=== PATIENT | female | born 1935 | race Two or more races ===

== ENCOUNTER → 2016-08-03 | Outpatient (CLI) | payer MEDICARE, MEDICAID | END | disposition home or self-care (01) | LOC: Rad HDHVI 08:28 | PROVIDERS: ATTEND Internal Medicine Cardiovascular Disease | DX: Z01.810 Encounter for preprocedural cardiovascular examination (principal) | CPT/HCPCS: 93306 ==

== ENCOUNTER → 2016-08-07 | Outpatient (CLI) | payer MEDICARE, MEDICAID ==
[~2016-08-07] VITALS: Ht 149.9 cm; Wt 82.6 kg
[~2016-08-07] MED LIST: D5W 5% IV SCH; DIPYRIDAMOLE (5MG/ML) 10 ML VIAL IV ONE; DIPYRIDAMOLE IV SCH
== END | disposition home or self-care (01) ==
LOC: Rad HDHVI 08:19
PROVIDERS: ATTEND Internal Medicine Cardiovascular Disease
DX: Z01.810 Encounter for preprocedural cardiovascular examination (principal); I10 Essential (primary) hypertension; E11.9 Type 2 diabetes mellitus without complications; E78.00 Pure hypercholesterolemia, unspecified
CPT/HCPCS: 78452; 93005; 96374; 96375; A9500; J1245

== ENCOUNTER → 2016-09-20 | Outpatient (CLI) | payer MEDICARE, MEDICAID ==
[~2016-09-20] VITALS: Ht 149.9 cm; Wt 82.6 kg
[~2016-09-20] MED LIST changes: +ALP15OS OP; +AMLO10TA2 PO; +ASPI-492 PO; +CARB25TA22 PO; +CARV12.544 PO; +CILO100T PO; -D5W 5% IV SCH; -DIPYRIDAMOLE (5MG/ML) 10 ML VIAL IV ONE; -DIPYRIDAMOLE IV SCH; +DORZ2SOL15 EACHEYE; +DORZ2SOL15 OP; +FURO40TA4 PO; +INSU1.2I SC; +INSUINJ18 SC; +LATA0.00 OP; +LORA-653 PO; +NOR5T PO; +PANT40T PO; +PAR20T PO; +POTA10TA34 PO; +SIMV-8 PO; +[UNRECOGNIZED DRUG - CODE] PO
[2016-09-20 11:20] VITALS: BP 137/69
[2016-09-20 11:50] VITALS: BP 123/65
[2016-09-20 17:01] LABS: Basophils # (auto) 0 uL; Basophils % (auto) 0.1 % (0.0-2.0); Eosinophils # (auto) 0.2 uL; Eosinophils % (auto) 2.8 % (0.0-7.0); Hematocrit 41.3 % (36.0-46.0); Hemoglobin 13.5 g/dL (12.2-16.2); Lymphocytes # (auto) 1.6 uL; Lymphocytes % (auto) 21.4 % (10.0-50.0); Mean Corpuscular Hemoglobin 30.5 pg (28.0-32.0); Mean Corpuscular Hgb Conc. 32.7 g/dL (32.0-36.0); Mean Platelet Volume 9.5 fL (7.4-10.4); Monocytes # (auto) 0.4 uL; Monocytes % (auto) 5.2 % (0.0-12.0); Neutrophils # (auto) 5.3 uL; Neutrophils % (auto) 70.5 % (37.0-80.0); Platelet Count (auto) 248 10^3/uL (140-450); Potassium 3.8 mmol/L (3.5-5.1); Red Cell Distribution Width 15.4 % (11.6-16.0); White Blood Cell 7.5 10^3/uL (4.4-10.8)
[2016-09-20 17:02] LABS: BUN/Creatinine Ratio 11.1; Calcium 9.2 mg/dL (8.5-10.1)
[2016-09-20 17:44] LABS: INR 1.06 (0.9-1.15); Partial Thromboplastin Time 29.1 sec (22.64-33.71); Prothrombin Time 11.4 sec (9.37-12.3)
== END | disposition home or self-care (01) ==
LOC: Rad HDHVI 10:53
PROVIDERS: ATTEND Internal Medicine Cardiovascular Disease
DX: I10 Essential (primary) hypertension (principal); D64.9 Anemia, unspecified; R79.1 Abnormal coagulation profile; Z01.812 Encounter for preprocedural laboratory examination
CPT/HCPCS: 36415; 71020; 80048; 85025; 85610; 85730; 93005; G0463

== ENCOUNTER 2016-09-21 12:11 | Inpatient (IN) | payer MEDICARE, MEDICAID ==
[~2016-09-21] VITALS: Ht 149.9 cm; Wt 82.6 kg
[2016-09-21] MEDS ORDERED: LIDOCAINE 2%HCL (LOCAL ANESTH.) INJ 20ML MDV ONE (15:15)
[2016-09-21] MEDS ORDERED: IOHEXOL 350 MG/ML 100ML IJ ONE (15:17)
[2016-09-21] MEDS ORDERED: SODIUM CHL 0.9% 50 ML ONE (15:23)
[2016-09-21] MEDS ORDERED: methylPREDNISolone SOD SUCC 125 MG/2 ML VL ONE (15:23)
[2016-09-21] MEDS ORDERED: ANGIOMAX 250 MG VIAL IV ONE (15:23)
[2016-09-21] MEDS ORDERED: MIDAZOLAM HCL 1MG/1ML-2 ML VIAL ONE (15:23)
[2016-09-21] MEDS ORDERED: diphenhdrAMINE HCL 50 MG/1 ML VL ONE (15:24)
[2016-09-21] MEDS ORDERED: SODIUM CHLORIDE 0.9% 1,000 ML IV SCH (17:21)
[2016-09-21] MEDS ORDERED: FUROSEMIDE 40 MG TAB PO PRN (17:30)
[2016-09-21] MEDS ORDERED: MORPHINE SULF INJ 2 MG/ML SYRINGE 1ML IV PRN (17:30)
[2016-09-21] MEDS ORDERED: NITROGLYCERIN 0.4 MG SL TAB SL PRN (17:30)
[2016-09-21] MEDS: HYDROcodone-ACET 5/325MG TAB PO SCH ×2 (18:00→21:53)
[2016-09-21] MEDS ORDERED: DEXTROSE (50%) 50ML SYRG IV PRN (18:00)
[2016-09-21 18:53] VITALS: BP 144/66
[2016-09-21] MEDS: SODIUM CHLOR 0.9% PF (SALINE LOCK) 10ML VIAL IV SCH (21:52)
[2016-09-21] MEDS: LORazepam 0.5 MG TAB PO SCH (21:52)
[2016-09-21] MEDS: DORZOLAM-TIMOLOL(2/0.5%) OPTH(EYE) SOLN 10ML EACHEYE SCH (21:52)
[2016-09-21] MEDS: CILOSTAZOL 100 MG TAB PO SCH (21:53)
[2016-09-21] MEDS: CARVEDILOL 12.5 MG TAB PO SCH (21:55)
[2016-09-21 22:00] VITALS: BP 135/63
[2016-09-21] MEDS: TICAGRELOR 90 MG TAB PO SCH (22:00)
[2016-09-21] MEDS: INSULIN ASPART SC SCH (22:00)
[2016-09-21] MEDS ORDERED: LATANOPROST 0.005 % OPTH(EYE) SOL 2.5ML OP SCH (22:00)
[2016-09-21] MEDS ORDERED: DORZOLAM-TIMOLOL(2/0.5%) OPTH(EYE) SOLN 10ML OP SCH (22:00)
[2016-09-21] MEDS: INSULIN ASPART PROTAMINE SC SCH (22:00)
[2016-09-21] MEDS ORDERED: InsuLIN REG 1unit/0.01ml Soln (100units/ml) SC SCH (22:00)
[2016-09-21] MEDS ORDERED: ATORVASTATIN 20 MG TAB PO SCH (22:00)
[2016-09-21] MEDS: ACCU-CHEK COMFORT CURVE STRIP VI SCH (22:04)
[2016-09-21] MEDS: CARBIDOPA W LEVODOPA 25/100mg TABLET PO SCH (22:23)
[2016-09-22] MEDS: HYDROcodone-ACET 5/325MG TAB PO SCH ×4 (02:00→14:22)
[2016-09-22 05:30] VITALS: BP 143/71
[2016-09-22] MEDS: CARBIDOPA W LEVODOPA 25/100mg TABLET PO SCH ×2 (06:00→14:23)
[2016-09-22] MEDS: SODIUM CHLOR 0.9% PF (SALINE LOCK) 10ML VIAL IV SCH ×2 (06:21→13:47)
[2016-09-22] MEDS: InsuLIN REG 1unit/0.01ml Soln (100units/ml) SC SCH ×2 (06:21→11:30)
[2016-09-22] MEDS: ACCU-CHEK COMFORT CURVE STRIP VI SCH ×3 (06:21→17:09)
[2016-09-22] MEDS: INSULIN ASPART SC SCH ×2 (08:44→12:00)
[2016-09-22] MEDS: INSULIN ASPART PROTAMINE SC SCH ×2 (08:44→12:00)
[2016-09-22 09:00] VITALS: BP 142/71
[2016-09-22] MEDS ORDERED: POTASSIUM CHL 10 Meq TABLET PO SCH (10:00)
[2016-09-22] MEDS: TICAGRELOR 90 MG TAB PO SCH ×2 (10:00→11:08)
[2016-09-22] MEDS ORDERED: amLODIPine BESYLATE 5 MG TAB PO SCH (10:00)
[2016-09-22] MEDS ORDERED: INSULIN GLARGINE 300 UNIT/ML SC SCH (10:00)
[2016-09-22] MEDS ORDERED: PANTOPRAZOLE 40 MG TAB PO SCH (10:00)
[2016-09-22] MEDS ORDERED: ASPirin-EC 81 mg tab PO SCH (10:00)
[2016-09-22] MEDS ORDERED: PARoxetine 20 MG TAB PO SCH (10:00)
[2016-09-22] MEDS ORDERED: OLANZapine 5 MG TAB PO SCH (10:00)
[2016-09-22] MEDS: CILOSTAZOL 100 MG TAB PO SCH (10:46)
[2016-09-22] MEDS: LORazepam 0.5 MG TAB PO SCH (10:59)
[2016-09-22] MEDS: CARVEDILOL 12.5 MG TAB PO SCH (11:03)
[2016-09-22] MEDS: DORZOLAM-TIMOLOL(2/0.5%) OPTH(EYE) SOLN 10ML EACHEYE SCH (11:39)
[2016-09-22 13:26] VITALS: BP 143/71
== END 2016-09-22 17:15 | disposition home or self-care (01) | DRG 247 ==
LOC: CATH 12:11 → TELE-CENTR 12:12
PROVIDERS: ADMIT Internal Medicine Cardiovascular Disease; ATTEND Internal Medicine Cardiovascular Disease
PROC: 027034Z Dilation of Coronary Artery, One Artery with Drug-eluting Intraluminal Device, Percutaneous Approach (ICD-10-PCS; principal; 2016-09-21)
PROC: 4A023N7 Measurement of Cardiac Sampling and Pressure, Left Heart, Percutaneous Approach (ICD-10-PCS; 2016-09-21)
PROC: B3121ZZ Fluoroscopy of Left Subclavian Artery using Low Osmolar Contrast (ICD-10-PCS; 2016-09-21)
PROC: B2131ZZ Fluoroscopy of Multiple Coronary Artery Bypass Grafts using Low Osmolar Contrast (ICD-10-PCS; 2016-09-21)
PROC: B41J1ZZ Fluoroscopy of Other Lower Arteries using Low Osmolar Contrast (ICD-10-PCS; 2016-09-21)
PROC: B2111ZZ Fluoroscopy of Multiple Coronary Arteries using Low Osmolar Contrast (ICD-10-PCS; 2016-09-21)
PROC: B2181ZZ Fluoroscopy of Left Internal Mammary Bypass Graft using Low Osmolar Contrast (ICD-10-PCS; 2016-09-21)
DX: I25.810 Atherosclerosis of coronary artery bypass graft(s) without angina pectoris (principal); I10 Essential (primary) hypertension; I25.84 Coronary atherosclerosis due to calcified coronary lesion; H40.9 Unspecified glaucoma; G89.29 Other chronic pain; E11.51 Type 2 diabetes mellitus with diabetic peripheral angiopathy without gangrene; M54.9 Dorsalgia, unspecified; K21.9 Gastro-esophageal reflux disease without esophagitis; Z91.041 Radiographic dye allergy status; Z82.49 Family history of ischemic heart disease and other diseases of the circulatory system; Z95.1 Presence of aortocoronary bypass graft; Z79.82 Long term (current) use of aspirin; Z86.73 Personal history of transient ischemic attack (TIA), and cerebral infarction without residual deficits
CPT/HCPCS: 82962; 92928; 93459; 99152; C1874; J1815; J2250

== ENCOUNTER → 2016-11-23 | Outpatient (CLI) | payer MEDICARE, MEDICAID ==
[~2016-11-23] VITALS: Ht 149.9 cm; Wt 78.9 kg
[~2016-11-23] MED LIST changes: +D5W 5% IV ONE; +DIPYRIDAMOLE (5MG/ML) 10 ML VIAL IV ONE; +DIPYRIDAMOLE IV ONE; +HYDR-4663 PO; -NOR5T PO
== END | disposition home or self-care (01) ==
LOC: Rad HDHVI 08:11
PROVIDERS: ATTEND Internal Medicine Cardiovascular Disease
DX: I25.10 Atherosclerotic heart disease of native coronary artery without angina pectoris (principal); I10 Essential (primary) hypertension; E78.00 Pure hypercholesterolemia, unspecified; Z95.1 Presence of aortocoronary bypass graft; Z98.61 Coronary angioplasty status
CPT/HCPCS: 78452; 93005; 93306; 96374; 96375; A9500; J1245; J7060

== ENCOUNTER → 2018-09-03 | Outpatient (CLI) | payer MEDICARE, MEDICAID ==
[~2018-09-03] MED LIST changes: +AMLO10TA12 PO; -AMLO10TA2 PO; -D5W 5% IV ONE; -DIPYRIDAMOLE (5MG/ML) 10 ML VIAL IV ONE; -DIPYRIDAMOLE IV ONE; -DORZ2SOL15 EACHEYE; -DORZ2SOL15 OP; +DORZ2SOL18 EACHEYE; +DORZ2SOL18 OP; -HYDR-4663 PO; +HYDR-4683 PO; -LATA0.00 OP; +LATA0.0020 OP; -POTA10TA34 PO; +POTA1TAB61 PO
== END | disposition home or self-care (01) ==
LOC: Rad HDHVI 08:04
PROVIDERS: ATTEND Internal Medicine Cardiovascular Disease
DX: I25.10 Atherosclerotic heart disease of native coronary artery without angina pectoris (principal); J44.9 Chronic obstructive pulmonary disease, unspecified; Z86.73 Personal history of transient ischemic attack (TIA), and cerebral infarction without residual deficits
CPT/HCPCS: 93306; 93880

== ENCOUNTER → 2018-09-26 | Outpatient (CLI) | payer MEDICARE, MEDICAID ==
[~2018-09-26] VITALS: Ht 149.9 cm; Wt 78.0 kg
[~2018-09-26] MED LIST changes: +ADENOSINE 66 MG in GIVE UN-DILUTED 0 ML IV ONE; +ADENOSINE 90 MG/30 ML INJ IV ONE
== END | disposition home or self-care (01) ==
LOC: Rad HDHVI 08:37
PROVIDERS: ATTEND Internal Medicine Cardiovascular Disease
DX: I25.10 Atherosclerotic heart disease of native coronary artery without angina pectoris (principal); E11.9 Type 2 diabetes mellitus without complications; I11.0 Hypertensive heart disease with heart failure; I50.23 Acute on chronic systolic (congestive) heart failure; G45.9 Transient cerebral ischemic attack, unspecified
CPT/HCPCS: 78452; 93005; 96374; 96375; A9500; J0153

== ENCOUNTER 2024-01-31 11:15 | Emergency (ER) | payer OTHER, MEDICARE, MEDICAID ==
[~2024-01-31 11:15] MED LIST changes: -ADENOSINE 66 MG in GIVE UN-DILUTED 0 ML IV ONE; -ADENOSINE 90 MG/30 ML INJ IV ONE; -AMLO10TA12 PO; +AMLO1TAB23 PO; -CARB25TA22 PO; +CARB25TA79 PO; -CILO100T PO; +CILO100T3 PO; -HYDR-4683 PO; +HYDR-4833 PO; +LORA-1120 PO; -LORA-653 PO; +POTA-215 PO; -POTA1TAB61 PO; -SIMV-8 PO; +SIMV20TA20 PO
[2024-01-31 14:16] VITALS: BP 129/61; PULSE 62; RESP 16; TEMP 98.1; O2SAT 97
[2024-01-31] MEDS: ACETAMINOPHEN 500 MG TAB PO ONE (14:16)
[2024-01-31] MEDS ORDERED: ACET-1080 PO (14:40)
[2024-01-31] MEDS ORDERED: AMOX500C2 PO (14:40)
== END 2024-01-31 14:53 | disposition home or self-care (01) ==
LOC: ER 11:15 → EDBD 11:15 → ER 14:53
DX: S16.1XXA Strain of muscle, fascia and tendon at neck level, initial encounter (principal); S46.911A Strain of unspecified muscle, fascia and tendon at shoulder and upper arm level, right arm, initial encounter; R51.9 Headache, unspecified; E11.9 Type 2 diabetes mellitus without complications; I10 Essential (primary) hypertension; Z79.899 Other long term (current) drug therapy; Z79.84 Long term (current) use of oral hypoglycemic drugs; Z79.82 Long term (current) use of aspirin; Z91.040 Latex allergy status; V49.59XA Passenger injured in collision with other motor vehicles in traffic accident, initial encounter; Y93.89 Activity, other specified; Y92.89 Other specified places as the place of occurrence of the external cause; Y99.8 Other external cause status
CPT/HCPCS: 70450; 72040